=== PATIENT | male | born 1995 | race African-American/Black ===

== ENCOUNTER 2018-08-12 04:47 | Emergency (ER) | payer MEDICAID ==
[~2018-08-12] VITALS: Ht 170.2 cm; Wt 122.7 kg
[2018-08-12] MEDS ORDERED: AUD NEB (05:04)
[2018-08-12] MEDS ORDERED: PRED5 PO (05:04)
[2018-08-12] MEDS ORDERED: ALBU8HFA IH ×2 (05:04)
[2018-08-12] MEDS ORDERED: SYMB8060 IH (05:04)
[2018-08-12] MEDS ORDERED: ALBUTEROL SULFATE 2.5 MG/0.5 ML NEB SOLUTION NEB ONE (05:15)
[2018-08-12] MEDS ORDERED: IPRATROPIUM BROMIDE 0.5 MG/2.5 ML NEB SOLUTION NEB ONE (05:15)
[2018-08-12] MEDS ORDERED: ACETAMINOPHEN 500 MG TABLET PO ONE (06:15)
[2018-08-12 07:16] VITALS: BP 141/67
== END 2018-08-12 07:59 | disposition home or self-care (01) ==
LOC: EMS 04:51
DX: J45.909 Unspecified asthma, uncomplicated (principal); Z79.899 Other long term (current) drug therapy
CPT/HCPCS: 94060; 94640